=== PATIENT | female | born 1945 | race Caucasian/White ===

== ENCOUNTER 2022-10-30 19:58 | Emergency (ER) | payer MEDICARE ==
[2022-10-30 20:13] VITALS: RESP 18; TEMP 98.6
[2022-10-30] MEDS ORDERED: LIDOCAINE 2% INJ 20 MG/ML (10 ML MDV) SQ STA (21:25)
[2022-10-30 21:58] VITALS: BP 145/67; PULSE 68
[2022-10-30] MEDS ORDERED: BACITRACIN OINT 1 EACH PACKET TOPICAL ONE (22:54)
--- NOTE | 2022-10-30 22:55 | ED ---
General Adult HPI - General Chief complaint: Extremity Injury, Lower Stated complaint: right foot laceration-blood thinners Time Seen by Provider: 10/30/22 20:29 Source: patient Mode of arrival: wheelchair - History of Present Illness Initial comments: 77-year-old female presents to the ED with a chief complaint of right ankle laceration. Patient states that she was going through a door when the screen door came back and hit her on the inside of the right ankle. Now notes ankle pain and laceration to the right ankle. Denies any other injury at this time. Denies chest pain or shortness of breath. No other complaints. - Related Data Allergies Allergy/AdvReac Type Severity Reaction Status Date / Time Penicillins Allergy Rash/Hives Verified 10/30/22 20:13 Review of Systems ROS Statement: Those systems with pertinent positive or pertinent negative responses have been documented in the HPI. ROS Other: All systems not noted in ROS Statement are negative. Past Medical History Past Medical History: Atrial Fibrillation, Hypertension History of Any Multi-Drug Resistant Organisms: None Reported Past Surgical History: Tubal Ligation Additional Past Surgical History / Comment(s): bunion. cataract Past Psychological History: No Psychological Hx Reported Smoking Status: Never smoker Past Alcohol Use History: None Reported Past Drug Use History: None Reported General Exam Limitations: no limitations General appearance: alert Head exam: Present: atraumatic, normocephalic Neck exam: Present: normal inspection Respiratory exam: Present: normal lung sounds bilaterally Cardiovascular Exam: Present: regular rate, normal rhythm Extremities exam: Present: other (DP/PT pulses intact. Right lower extremity shows full strength and sensation.) Neurological exam: Present: alert, oriented X3 Psychiatric exam: Present: normal affect, normal mood Skin exam: Present: warm, dry Course Vital Signs 10/30/22 10/30/22 20:07 21:56 Temperature 98.6 F Pulse Rate 60 68 Respiratory 18 18 Rate Blood Pressure 151/79 145/67 O2 Sat by Pulse 100 97 Oximetry Procedures - Laceration Laceration #1 Indication: laceration Site: lower extremity Size (cm): 10 Description: linear Depth: simple, single layer Anesthetic Used: lidocaine 2% Anesthesia Technique: local infiltration Amount (mls): 5 Pre-repair: wound explored, irrigated extensively Size of Sutures: 5-0 Number of Sutures: 14 Technique: simple, interrupted Patient Tolerated Procedure: well, no complications Laceration #2 Indication: laceration Site: lower extremity Size (cm): 2 Description: linear Depth: simple, single layer Anesthetic Used: lidocaine 2%, without epi Anesthesia Technique: local infiltration Amount (mls): 2 Pre-repair: wound explored, irrigated extensively Type of Sutures: nylon Size of Sutures: 5-0 Number of Sutures: 3 Technique: simple, interrupted Patient Tolerated Procedure: well, no complications Medical Decision Making - Medical Decision Making Was pt. sent in by a medical professional or institution ([facility], [facility], urgent care, hospital, or halfway...) When possible be specific @ -No Did you speak to anyone other than the patient for history (EMS, parent, family, police, friend...)? What history was obtained from this source @ -No Did you review nursing and triage notes (agree or disagree)? Why? @ -I reviewed and agree with nursing and triage notes Were old charts reviewed (outside hosp., previous admission, EMS record, old EKG, old radiological studies, urgent care reports/EKG's, halfway records)? Report findings @ -No old charts were reviewed Differential Diagnosis (chest pain, altered mental status, abdominal pain women, abdominal pain men, vaginal bleeding, weakness, fever, dyspnea, syncope, headache, dizziness, GI bleed, back pain, seizure, CVA, palpatations, mental health, musculoskeletal)? @ -Acute fracture, ligamentous injury, arterial injury. This not meant to be an all-inclusive list EKG interpreted by me (3pts min.). @ -None X-rays interpreted by me (1pt min.). @ -None done CT interpreted by me (1pt min.). @ -None done U/S interpreted by me (1pt. min.). @ -None done What testing was considered but not performed or refused? (CT, X-rays, U/S, l abs)? Why? @ -None What meds were considered but not given or refused? Why? @ -None Did you discuss the management of the patient with other professionals (professionals i.e. [facility], [facility], lab, RT, psych nurse, social media assistant, van driver, teacher, licensed loan officer, manager rn case)? Give summary @ -No Was smoking cessation discussed for >3mins.? @ -No Was critical care preformed (if so, how long)? @ -No Were there social determinants of health that impacted care today? How? (Homelessness, low income, unemployed, alcoholism, drug addiction, transportation, low edu. Level, literacy, decrease access to med. care, senior living, rehab)? @ -No Was there de-escalation of care discussed even if they declined (Discuss DNR or withdrawal of care, Hospice)? DNR status @ -No What co-morbidities impacted this encounter? (DM, HTN, Smoking, COPD, CAD, Cancer, CVA, ARF, Chemo, Hep., AIDS, mental health diagnosis, sleep apnea, morbid obesity)? @ -None Was patient admitted / discharged? Hospital course, mention meds given and route, prescriptions, significant lab abnormalities, going to OR and other pertinent info. @ -Discharge. Patient had laceration repaired. Please see procedure note for further details. Following laceration repair laceration covered with bacitracin and a nonocclusive dressing. Advised to return in 10-14 days for suture removal. Discussed return precautions with patient who verbalizes agreement. Undiagnosed new problem with uncertain prognosis? @ -No Drug Therapy requiring intensive monitoring for toxicity (Heparin, Nitro, Insulin, Cardizem)? @ -No Were any procedures done? @ -Yes, please see procedure note further details Diagnosis/symptom? @ -Laceration Acute, or Chronic, or Acute on Chronic? @ -Acute Uncomplicated (without systemic symptoms) or Complicated (systemic symptoms)? @ -Uncomplicated Side effects of treatment? @ -No Exacerbation, Progression, or Severe Exacerbation? @ -No Poses a threat to life or bodily function? How? (Chest pain, [place], [place], pneumonia, PE, COPD, DKA, ARF, appy, cholecystitis, CVA, Diverticulitis, Homicidal, Suicidal, threat to staff... and all critical care pts) @ -No Disposition Clinical Impression: Laceration Disposition: HOME SELF-CARE Instructions (If sedation given, give patient instructions): Care For Your Stitches (ED) Additional Instructions: Please return to the Emergency Department if symptoms worsen or any other concerns. Return or present to PCP/urgent care in 10-14 days for suture removal Is patient prescribed a controlled substance at d/c from ED?: No Referrals: None,Stated [Primary Care Provider] - 1-2 days Time of Disposition: 22:55
== END 2022-10-30 23:10 | disposition home or self-care (01) ==
LOC: EC 19:58
DX: S91.011A Laceration without foreign body, right ankle, initial encounter (principal); I10 Essential (primary) hypertension; I48.91 Unspecified atrial fibrillation; Z88.0 Allergy status to penicillin; W22.8XXA Striking against or struck by other objects, initial encounter
CPT/HCPCS: 99283; 12004; J2001